=== PATIENT | male | born 1990 | race Caucasian/White ===

== ENCOUNTER 2018-02-19 14:54 | Emergency (ER) | payer OTHER ==
[~2018-02-19] VITALS: Ht 172.7 cm; Wt 81.7 kg
[~2018-02-19 14:54] MED LIST: NAPROXEN500 MG PO; PEN-VEE K,VEET500 MG PO
[2018-02-19] MEDS ORDERED: NAPROSYN500 MG PO (16:33)
[2018-02-19 17:36] VITALS: BP 113/69
== END 2018-02-19 17:39 | disposition home or self-care (01) ==
LOC: EME 14:54
DX: S83.92XA Sprain of unspecified site of left knee, initial encounter (principal); V49.50XA Passenger injured in collision with unspecified motor vehicles in traffic accident, initial encounter; Y92.410 Unspecified street and highway as the place of occurrence of the external cause
CPT/HCPCS: 73564; 99281; 99283